=== PATIENT | female | born 1955 | race Caucasian/White ===

== ENCOUNTER 2020-12-13 14:09 | Inpatient (IN) | payer BC ==
[~2020-12-13] VITALS: Ht 124.4 cm; Wt 71.2 kg
[2020-12-13 14:28] VITALS: BP 116/65
[2020-12-13 15:17] LABS: BASO % 0.2 % (0.0-1.0); EOS % 0.1 % (1.0-4.0); HEMATOCRIT 45.4 % (37.0-47.0); LYMPH # 1.4 10*3/uL (1.3-4.4); LYMPH % 7.9 % (27.0-41.0); MEAN CELL VOLUME 82.5 fl (81.0-99.0); MEAN CORPUSCULAR HGB 26.4 pg (27.0-31.0); MEAN CORPUSCULAR HGB CONC 31.9 g/dl (33.0-37.0); MEAN PLATELET VOLUME 10.2 fl (9.6-12.3); MONO % 5.7 % (3.0-9.0); NEUT # 15.3 10*3/uL (2.3-7.9); NEUT % 85.7 % (47.0-73.0); PLATELET COUNT AUTOMATED 304 10*3/uL (130-400); RED CELL DISTRI WIDTH 14.2 % (0-14.5); WHITE BLOOD COUNT 17.8 10*3/uL (4.8-10.8)
[2020-12-13 15:37] LABS: ALBUMIN 3.1 gm/dl (3.1-4.5); ALKALINE PHOSPHATASE 107 U/L (45-117); BUN 14 mg/dl (7-24); CHLORIDE 102 mmol/L (98-107); CREATININE 0.84 mg/dL (0.55-1.02); POTASSIUM 3.7 mmol/L (3.5-5.1); SGOT/AST 7 IU/L (3-35); SGPT/ALT 23 U/L (12-78); SODIUM 135 mmol/L (136-145)
[2020-12-13 15:39] LABS: LIPASE 14197 U/L (73-393)
[2020-12-13 19:47] VITALS: BP 134/53
[2020-12-13 21:01] VITALS: BP 140/60
[2020-12-13 22:10] VITALS: BP 120/60
[2020-12-13] MEDS ORDERED: LIPITOR20 MG PO (23:05)
[2020-12-13] MEDS ORDERED: GLUCOPHAGE500 M1 PO (23:05)
[2020-12-13] MEDS ORDERED: SYNTHROID,LEVO88 MCG PO (23:06)
[2020-12-13] MEDS ORDERED: LISINOPRIL5 MG PO (23:07)
[2020-12-13] MEDS ORDERED: NOVOLOG10 ML SC (23:07)
[2020-12-14 06:27] LABS: BASO % 0.2 % (0.0-1.0); EOS # 0.1 10*3/uL (0.0-0.4); EOS % 0.5 % (1.0-4.0); HEMATOCRIT 42.7 % (37.0-47.0); LYMPH # 1.3 10*3/uL (1.3-4.4); LYMPH % 7.5 % (27.0-41.0); MEAN CELL VOLUME 83.9 fl (81.0-99.0); MEAN CORPUSCULAR HGB 26.1 pg (27.0-31.0); MEAN CORPUSCULAR HGB CONC 31.1 g/dl (33.0-37.0); MEAN PLATELET VOLUME 10.2 fl (9.6-12.3); MONO # 1.5 10*3/uL (0.1-1.0); MONO % 8.4 % (3.0-9.0); NEUT # 14.8 10*3/uL (2.3-7.9); PLATELET COUNT AUTOMATED 277 10*3/uL (130-400); RED BLOOD COUNT 5.09 10*6/uL (4.10-5.10); RED CELL DISTRI WIDTH 14.6 % (0-14.5); WHITE BLOOD COUNT 17.8 10*3/uL (4.8-10.8)
[2020-12-14 06:42] LABS: ALBUMIN 2.9 gm/dl (3.1-4.5); ALKALINE PHOSPHATASE 90 U/L (45-117); BUN 12 mg/dl (7-24); CHLORIDE 103 mmol/L (98-107); CHOLESTEROL 142 mg/dL (<200); CREATININE 0.61 mg/dL (0.55-1.02); LDL CHOLESTEROL 68 mg/dL (9-159); POTASSIUM 3.8 mmol/L (3.5-5.1); SGOT/AST 8 IU/L (3-35); SGPT/ALT 17 U/L (12-78); SODIUM 137 mmol/L (136-145); TOTAL PROTEIN 7.2 gm/dL (6.4-8.2); TRIGLYCERIDES 112 mg/dl (<150)
[2020-12-14 06:43] LABS: LIPASE 7277 U/L (73-393)
[2020-12-14 08:00] VITALS: BP 152/68
[2020-12-14 12:00] VITALS: BP 161/66
[2020-12-14 16:00] VITALS: BP 154/61
[2020-12-14 20:43] VITALS: BP 153/72
[2020-12-15] VITALS: BP 145/62
[2020-12-15 05:52] LABS: BUN 13 mg/dl (7-24); CHLORIDE 104 mmol/L (98-107); CREATININE 0.59 mg/dL (0.55-1.02); POTASSIUM 3.9 mmol/L (3.5-5.1); SODIUM 132 mmol/L (136-145)
[2020-12-15 07:21] LABS: BASO % 0.2 % (0.0-1.0); EOS # 0.2 10*3/uL (0.0-0.4); EOS % 1.1 % (1.0-4.0); HEMATOCRIT 39.4 % (37.0-47.0); LYMPH # 1.9 10*3/uL (1.3-4.4); LYMPH % 10.5 % (27.0-41.0); MEAN CORPUSCULAR HGB 26.4 pg (27.0-31.0); MEAN CORPUSCULAR HGB CONC 31.5 g/dl (33.0-37.0); MEAN PLATELET VOLUME 9.9 fl (9.6-12.3); MONO # 1.4 10*3/uL (0.1-1.0); MONO % 7.8 % (3.0-9.0); NEUT # 14.2 10*3/uL (2.3-7.9); NEUT % 79.8 % (47.0-73.0); PLATELET COUNT AUTOMATED 250 10*3/uL (130-400); RED BLOOD COUNT 4.69 10*6/uL (4.10-5.10); RED CELL DISTRI WIDTH 14.7 % (0-14.5); WHITE BLOOD COUNT 17.8 10*3/uL (4.8-10.8)
[2020-12-15 08:00] VITALS: BP 140/70
[2020-12-15 12:00] VITALS: BP 144/62
[2020-12-15 16:00] VITALS: BP 143/71
[2020-12-15 20:00] VITALS: BP 139/49
[2020-12-16] VITALS: BP 172/76
[2020-12-16 06:15] LABS: BASO % 0.2 % (0.0-1.0); EOS # 0.3 10*3/uL (0.0-0.4); EOS % 1.9 % (1.0-4.0); LYMPH # 1.5 10*3/uL (1.3-4.4); LYMPH % 10.3 % (27.0-41.0); MEAN CELL VOLUME 84.7 fl (81.0-99.0); MEAN CORPUSCULAR HGB 26.3 pg (27.0-31.0); MEAN CORPUSCULAR HGB CONC 31.1 g/dl (33.0-37.0); MEAN PLATELET VOLUME 10.2 fl (9.6-12.3); MONO # 1.2 10*3/uL (0.1-1.0); MONO % 7.8 % (3.0-9.0); NEUT # 11.8 10*3/uL (2.3-7.9); NEUT % 79.1 % (47.0-73.0); PLATELET COUNT AUTOMATED 234 10*3/uL (130-400); RED BLOOD COUNT 4.37 10*6/uL (4.10-5.10); RED CELL DISTRI WIDTH 14.6 % (0-14.5); WHITE BLOOD COUNT 14.9 10*3/uL (4.8-10.8)
[2020-12-16 06:48] LABS: ALBUMIN 2.1 gm/dl (3.1-4.5); ALKALINE PHOSPHATASE 90 U/L (45-117); BUN 9 mg/dl (7-24); CHLORIDE 105 mmol/L (98-107); CREATININE 0.53 mg/dL (0.55-1.02); LIPASE 378 U/L (73-393); POTASSIUM 3.5 mmol/L (3.5-5.1); SGOT/AST 9 IU/L (3-35); SGPT/ALT 14 U/L (12-78); SODIUM 134 mmol/L (136-145); TOTAL PROTEIN 6.6 gm/dL (6.4-8.2)
[2020-12-16 08:00] VITALS: BP 131/66
[2020-12-16 12:00] VITALS: BP 140/53
[2020-12-16 16:00] VITALS: BP 144/61
[2020-12-16 20:00] VITALS: BP 134/60
[2020-12-17] VITALS: BP 119/56
[2020-12-17 06:16] LABS: BASO % 0.4 % (0.0-1.0); EOS # 0.4 10*3/uL (0.0-0.4); EOS % 3.6 % (1.0-4.0); HEMATOCRIT 34.4 % (37.0-47.0); LYMPH # 1.6 10*3/uL (1.3-4.4); LYMPH % 14.5 % (27.0-41.0); MEAN CELL VOLUME 83.9 fl (81.0-99.0); MEAN CORPUSCULAR HGB 26.1 pg (27.0-31.0); MEAN CORPUSCULAR HGB CONC 31.1 g/dl (33.0-37.0); MEAN PLATELET VOLUME 9.8 fl (9.6-12.3); MONO % 8.9 % (3.0-9.0); NEUT # 8.1 10*3/uL (2.3-7.9); NEUT % 72.3 % (47.0-73.0); PLATELET COUNT AUTOMATED 233 10*3/uL (130-400); RED CELL DISTRI WIDTH 14.4 % (0-14.5); WHITE BLOOD COUNT 11.2 10*3/uL (4.8-10.8)
[2020-12-17 06:33] LABS: BUN 8 mg/dl (7-24); CHLORIDE 106 mmol/L (98-107); CREATININE 0.48 mg/dL (0.55-1.02); POTASSIUM 3.1 mmol/L (3.5-5.1); SODIUM 137 mmol/L (136-145)
[2020-12-17 08:00] VITALS: BP 135/73
[2020-12-17 12:00] VITALS: BP 149/66
[2020-12-17] MEDS ORDERED: ZOFRAN4 MG PO (13:43)
== END 2020-12-17 15:23 | disposition home or self-care (01) | DRG 439 ==
LOC: ED 14:09 → 5E 19:08 → EDHOLD 19:08 → 5E 19:31
PROVIDERS: Emergency Medicine; Internal Medicine; ADMIT Internal Medicine; ATTEND Internal Medicine
DX: K85.80 Other acute pancreatitis without necrosis or infection (principal); E44.0 Moderate protein-calorie malnutrition; J98.11 Atelectasis; Z68.42 Body mass index [BMI] 45.0-49.9, adult; E66.01 Morbid (severe) obesity due to excess calories; R91.8 Other nonspecific abnormal finding of lung field; E87.6 Hypokalemia; E78.00 Pure hypercholesterolemia, unspecified; E78.5 Hyperlipidemia, unspecified; E11.65 Type 2 diabetes mellitus with hyperglycemia; E03.9 Hypothyroidism, unspecified; Z79.4 Long term (current) use of insulin; Z91.040 Latex allergy status; Z79.899 Other long term (current) drug therapy; Z90.710 Acquired absence of both cervix and uterus